=== PATIENT | female | born 1950 | race Caucasian/White ===

== ENCOUNTER 2016-09-13 19:09 | Emergency (ER) | payer MEDICARE, OTHER ==
[2017-03-28] MEDS ORDERED: POLYETHYLENE GL17 GM PEG (10:14)
[2017-03-28] MEDS ORDERED: ONCE DAILY1 EACH PEG (10:15)
[2017-03-28] MEDS ORDERED: ZOLOFT25 MG PEG (10:15)
[2017-03-28] MEDS ORDERED: FOLIC ACID 1 MG1 MG GT (10:16)
[2017-03-28] MEDS ORDERED: VITAMIN B-1 5050 MG GT (10:16)
[2017-03-28] MEDS ORDERED: LEVAQUIN I500 MG/100 IV (10:17)
[2017-03-28] MEDS ORDERED: VITAMIN C 500500 MG PEG (10:17)
[2017-03-28] MEDS ORDERED: ROPINIROLE HC0.25 MG PEG (10:18)
[2017-03-28] MEDS ORDERED: AVEENO 1% CREAM28 GM TP (10:19)
[2017-03-28] MEDS ORDERED: [UNRECOGNIZED DRUG - OTHER] TP (10:20)
[2017-03-28] MEDS ORDERED: DULCOLAX10 MG PR (10:22)
[2017-03-28] MEDS ORDERED: TYLENOL 500 MG500 MG PEG (10:22)
[2017-03-28] MEDS ORDERED: LORTAB 5-325 M1 EACH PO (10:23)
[2017-03-28] MEDS ORDERED: OSMOLITE 1.21000 ML PEG (10:25)
== END 2016-09-13 21:20 | disposition home or self-care (01) ==
LOC: ER1 19:09
DX: K94.23 Gastrostomy malfunction (principal)
CPT/HCPCS: 99284

== ENCOUNTER 2016-10-21 13:14 | Emergency (ER) | payer MEDICARE, OTHER ==
[2016-10-21 14:48] LABS: RED BLOOD COUNT 4.5 M/UL (4.00-5.10); WHITE BLOOD COUNT 5.8 K/UL (4.5-11.0)
[2016-10-21 15:03] LABS: BUN/CREATININE RATIO 57 (0-10)
[2017-03-28] MEDS ORDERED: POLYETHYLENE GL17 GM PEG (10:14)
[2017-03-28] MEDS ORDERED: ZOLOFT25 MG PEG (10:15)
[2017-03-28] MEDS ORDERED: ONCE DAILY1 EACH PEG (10:15)
[2017-03-28] MEDS ORDERED: FOLIC ACID 1 MG1 MG GT (10:16)
[2017-03-28] MEDS ORDERED: VITAMIN B-1 5050 MG GT (10:16)
[2017-03-28] MEDS ORDERED: LEVAQUIN I500 MG/100 IV (10:17)
[2017-03-28] MEDS ORDERED: VITAMIN C 500500 MG PEG (10:17)
[2017-03-28] MEDS ORDERED: ROPINIROLE HC0.25 MG PEG (10:18)
[2017-03-28] MEDS ORDERED: AVEENO 1% CREAM28 GM TP (10:19)
[2017-03-28] MEDS ORDERED: [UNRECOGNIZED DRUG - OTHER] TP (10:20)
[2017-03-28] MEDS ORDERED: DULCOLAX10 MG PR (10:22)
[2017-03-28] MEDS ORDERED: TYLENOL 500 MG500 MG PEG (10:22)
[2017-03-28] MEDS ORDERED: LORTAB 5-325 M1 EACH PO (10:23)
[2017-03-28] MEDS ORDERED: OSMOLITE 1.21000 ML PEG (10:25)
== END 2016-10-21 20:39 ==
LOC: ER1 13:14
PROVIDERS: Emergency Medicine
DX: K94.23 Gastrostomy malfunction (principal); K56.41 Fecal impaction; D64.9 Anemia, unspecified; R03.1 Nonspecific low blood-pressure reading; F03.90 Unspecified dementia, unspecified severity, without behavioral disturbance, psychotic disturbance, mood disturbance, and anxiety
CPT/HCPCS: 74000; 80048; 85025; 96360; 96361; 99284; Q9963